=== PATIENT | female | born 1970 | race Two or more races ===

== ENCOUNTER 2017-12-21 16:38 | Emergency (ER) | payer OTHER ==
[2017-12-21 16:56] VITALS: BP 110/62; PULSE 64; TEMP 97.9; BMI 222.6
[2017-12-21] MEDS ORDERED: KETOROLAC TROMETHAMINE 60 MG/2 ML VIAL IM ONE (18:11)
[2017-12-21] MEDS ORDERED: KETOROLAC TROMETHAMINE 60 MG/2 ML VIAL ONE (18:13)
--- NOTE | 2017-12-21 18:18 | PDOC ---
History of Present Illness - General Chief Complaint: Back Pain Stated Complaint: BACK AND LEG PAIN Time Seen by Provider: 12/21/17 17:20 - History of Present Illness Initial Comments: 47-year-old female without comorbidities presents for evaluation of lower back pain with bilateral posterior lateral leg radiculopathy 2 weeks without any loss of bowel bladder function or saddle paresthesia no other associated symptoms 12/21/17 18:16 Past History - Past Medical History Allergies/Adverse Reactions: Allergies Allergy/AdvReac Type Severity Reaction Status Date / Time No Known Allergies Allergy Verified 12/21/17 16:54 Home Medications: Ambulatory Orders NK [No Known Home Medication] 12/21/17 COPD: No - Immunization History Immunization Up to Date: Yes - Suicide/Smoking/Psychosocial Hx Smoking Status: No Smoking History: Never smoked Number of Cigarettes Smoked Daily: 0 Hx Alcohol Use: No Drug/Substance Use Hx: No Substance Use Type: None Review of Systems - Review of Systems Musculoskeletal: Yes: Back Pain All Other Systems: Reviewed and Negative *Physical Exam - Vital Signs Last Vital Signs Temp Pulse Resp BP Pulse Ox 97.9 F 64 18 110/62 100 12/21/17 16:55 12/21/17 16:55 12/21/17 16:55 12/21/17 16:55 12/21/17 16:55 - Physical Exam Comments: 12/21/17 18:16 Lumbar spine skin color and temperature are normal range of motion is slightly decreased secondary to stiffness and pain. There is no paralumbar musculature spasm or tenderness. No midline tenderness. There is 5 out of 5 strength in bilateral lower extremities without gross sensorimotor deficits. She's neurovascular intact. ED Treatment Course - ADDITIONAL ORDERS Additional order review: Laboratory Results 12/21/17 17:30 Beta HCG, Quant < 1.0 - Medications Given in the ED: ED Medications Discontinued Medications Generic Name Dose Route Start Last Admin Trade Name Freq PRN Reason Stop Dose Admin Ketorolac Tromethamine 60 mg 12/21/17 18:11 12/21/17 18:15 Toradol Injection - IM 12/21/17 18:12 60 mg ONCE ONE Administration Medical Decision Making - Medical Decision Making 12/21/17 18:16 Lumbar radiculopathy with a benign lumbar spine exam. This may be. Forms syndrome I will prescribe her Motrin and Flexeril have her follow-up with spine surgery *DC/Admit/Observation/Transfer Diagnosis at time of Disposition: Lumbar radicular pain - Discharge Dispostion Disposition: HOME Condition at time of disposition: Stable Decision to Admit order: No - Referrals Referrals: David Mcclelland MD [Primary Care Provider] - Yuri Neri MD [Staff Physician] - - Patient Instructions Printed Discharge Instructions: Lumbar Radiculopathy, DI for Lumbar Radiculopathy Additional Instructions: Return to the emergency room should symptoms worsen or go unresolved. Please follow-up with spine surgery for further evaluation and treatment options. I prescribed few Motrin which is one tablet 3 times a day with food. Please discontinue the medication of bothers her stomach. I have prescribed few a muscle relaxer as well which is one tablet before bedtime I will make you sleepy. Follow up with spine surgery in 2-3 days for further evaluation and treatment options. - Post Discharge Activity
== END 2017-12-21 18:23 | disposition home or self-care (01) ==
LOC: JERFT 16:38
PROC: 3E0233Z Introduction of Anti-inflammatory into Muscle, Percutaneous Approach (ICD-10-PCS; principal; 2017-12-21)
DX: M54.16 Radiculopathy, lumbar region (principal)
CPT/HCPCS: 36415; 84702; 96372; 99281-25

== ENCOUNTER 2018-11-14 10:07 | Day surgery (SDC) | payer OTHER ==
[2018-11-13 14:15] VITALS: BMI 27.3
--- NOTE | 2018-11-14 09:11 | HP ---
History & Physical Update - History History: No Change - Physical Physical: No Change - Assessment Assessment: No Change - Plan Plan: No Change (Severe rectal pain, ? chronic anal fissure. Plan : examination under anesthesia, possible sphincterotomy, (lateral), anal fissurectomy, and otherrvrelated procedures, possible hemorrhoid ligation.)
[2018-11-14] MEDS ORDERED: SUCCINYLCHOLINE CHLORIDE 200 MG/10 ML SYRINGE ONE (12:20)
[2018-11-14] MEDS ORDERED: EPHEDRINE SULFATE/0.9% NACL/PF 50 MG/10 ML SYRINGE NR ONE (12:20)
[2018-11-14] MEDS ORDERED: PROPOFOL 20 ML ONE ×2 (12:20)
[2018-11-14] MEDS ORDERED: MIDAZOLAM HCL 2 MG/2 ML SINGLE DOSE VIAL ONE ×2 (12:50→13:08)
[2018-11-14] MEDS ORDERED: BUPIVACAINE HCL/PF 0.5% (5 MG/ML) 30 ML VIAL IJ ONE ×2 (12:51→14:37)
[2018-11-14] MEDS ORDERED: BACITRACIN 15 GM TUBE TOPICAL OINTMENT ONE (14:16)
[2018-11-14] MEDS ORDERED: BACITRACIN 15 GM TUBE TOPICAL OINTMENT TP ONE (14:17)
--- NOTE | 2018-11-14 14:54 | OP ---
Operative Note - Note: Operative Date: 11/14/18 Pre-Operative Diagnosis: Proctalgia, anal fissure with external hemorrhoid. Operation: Proctosigmoidoscopy with anal dilation,. Excision of anal fissure with anal poyp,. Lateral sphincterotomy,. Ultrasound guided ligation of hemorrhoidal artery and bundles, at 7, 9 and 11 O'clock position with hemorrhoidipexy. ( x 3), using THD instrument. Excision of anal polyp at 1 O; clock position Findings: Anal fissure at 6 o'clock position with sentinel pile, Stage 2 hemorrhoids at 7 . 9 and 11 O.clock position, Anal polyp at 1 o'clock position . Surgeon: Camacho Cifuentes Anesthesia: Spinal Specimens Removed: 1) Anal fissure with sentinel pile,. 2) Anal polyp at 1O' clock position. Estimated Blood Loss (mls): 5 Operative Report Dictated: Yes
[2018-11-14 16:40] VITALS: BP 105/62; PULSE 60; TEMP 97.7
--- NOTE | 2018-11-14 17:12 | OP ---
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 POSTOPERATIVE DIAGNOSIS: Chronic anal fissure with anal skin tag, anal polyp at 1 o'clock position, and 2nd-degree hemorrhoids. OPERATIVE PROCEDURES: 1. Proctosigmoidoscopy with anal dilatation. 2. Excision of anal fissure with lateral sphincterotomy with anal polyp. 3. Excision of anal polyp at 1 o'clock position. 4. Ultrasound-guided ligation of hemorrhoidal artery and bundles at 7, 9, and 11 o'clock position with hemorrhoidopexy x3 using the transanal hemorrhoidal dearterialization instrument. OPERATIVE DESCRIPTION: This 48-year-old woman complained of chronic rectal pain with anal fistula as well as anal bleeding and an anal polyp, external skin tag at 6 o'clock position. Pain was not relieved with conservative management with severe anal spasm. Patient is brought in for anal fissurectomy as well as ligation of hemorrhoids and removal of anal polyp. The patient was given spinal anesthesia and placed in lithotomy position. The perineum was painted and draped. A rigid total sigmoidoscopy was performed with anal dilation with 2 fingers on either side. Proctosigmoidoscopy revealed anal fissure at 6 o'clock position with a sentinel pile, an anal polyp at 1 o'clock position, and 2nd-degree hemorrhoids at 5, 7, 9, and 11 o'clock position. After proctosigmoidoscopy with anal dilation, the anal fissure was visualized using the anoscope. This was completely excised circumferentially with normal anal mucosa as well as removing the external pile and all scar tissue. This was sent to Pathology as a specimen. The mucosa was then placed to the left side, and the superficial fibers of the external sphincter were incised to perform a fissurectomy. Once this was done, the anal mucosa was carefully approximated with continuous 3-0 Vicryl sutures thus closing the defect. Once excision of anal fissure with sphincterotomy and repair was completed, the anal polyp at 1 o'clock position was also excised using electrocautery. This was also sent to Pathology. Next, using the THD instrument, the hemorrhoidal artery and bundles were ligated, and hemorrhoidopexy was also performed. This was done using the ultrasound guidance with maximal arterial signal of the hemorrhoidal artery in the submucosa was identified at 3, 7, and 9 o'clock position. This was done using 2-0 Vicryl ligating this hemorrhoidal artery using the THD instrument. After ligating, the sound was muffled. Once this was done, the hemorrhoidal bundle was also ligated using the suture in a continuous running fashion close to the skin and then pulling it back towards the 1st suture thus ligating the hemorrhoidal bundles and doing hemorrhoidopexy. This was done at 3 positions, 7, 9, and 11 o'clock position. At the completion of this, there was no bleeding. Marcaine 0.5% was injected circumferentially to the external sphincter and to the hemorrhoidal bundles and skin in the periphery. Estimated blood loss was 5-10 mL. Sponge count and instrument count was correct. Patient was sent to the recovery room in satisfactory and stable condition. Anjel [id number] cc: David Mcclelland MD
--- NOTE | 2018-11-19 17:18 | PATH ---
Surgical Pathology Report Patient Name: DEE PIÑA Med. Rec. #: [id number] /Age/Gender: 1970 (Age: 48) / F Account: [id number] Location: [facility] SURGICAL Taken: 11/14/2018 Received: 11/18/2018 Reported: 11/19/2018 Physicians: Shon Cifuentes M.D. Specimen(s) Received A: ANAL FISTULA B: ANAL POLYP 1:00 Clinical History Severe rectal pain, chronic anal fistula Final Diagnosis A. ANAL FISTULA, EXCISION: SQUAMOUS MUCOSA WITH MILD CHRONIC INFLAMMATION, MILD LAMINA PROPRIA FIBROSIS, AND REACTIVE CHANGES COMPATIBLE WITH ANAL FISTULA. B. ANAL POLYP, 1:00, BIOPSY: PAPILLARY SQUAMOUS MUCOSA WITH MILD ACANTHOSIS. Electronically Signed Esperanza Ponce M.D. Gross Description A. Received in formalin, labeled "anal fistula" is a 1.5 x 0.5 x 0.3 cm portion of gonzalez, polypoid tissue. Entirely submitted in one cassette. B. Received in, labeled "anal polyp at 1:00" is a 0.7 x 0.5 x 0.2 cm portion of brown-gonzalez, polypoid tissue. Entirely submitted in one cassette. AE/11/18/2018 ebram/11/18/2018
== END 2018-11-14 18:15 | disposition home or self-care (01) ==
LOC: JASU-SURG 10:07
PROVIDERS: ATTEND Specialist
PROC: 0D9Q8ZZ Drainage of Anus, Via Natural or Artificial Opening Endoscopic (ICD-10-PCS; 2018-11-14)
PROC: 065Y0ZC Destruction of Hemorrhoidal Plexus, Open Approach (ICD-10-PCS; 2018-11-14)
PROC: 0DBQ0ZZ Excision of Anus, Open Approach (ICD-10-PCS; principal; 2018-11-14 11:30)
DX: K60.1 Chronic anal fissure (principal); K64.4 Residual hemorrhoidal skin tags; K64.1 Second degree hemorrhoids; K62.0 Anal polyp
CPT/HCPCS: 84703; 88304-TC; 88305-TC; 94760

== ENCOUNTER 2020-10-20 04:43 | Day surgery (SDC) | payer OTHER ==
[2020-10-19 12:27] VITALS: BMI 26.7
[2020-10-20 10:47] VITALS: TEMP 96.9
[2020-10-20 12:55] VITALS: BP 114/71; PULSE 53
== END 2020-10-20 11:40 | disposition home or self-care (01) ==
LOC: JASU-ENDO 04:43
PROVIDERS: ATTEND Internal Medicine Gastroenterology
PROC: 0DBL8ZX Excision of Transverse Colon, Via Natural or Artificial Opening Endoscopic, Diagnostic (ICD-10-PCS; principal; 2020-10-20 10:30)
DX: R10.9 Unspecified abdominal pain (principal); D12.3 Benign neoplasm of transverse colon
CPT/HCPCS: 81025; 88305-TC; 88342-TC

== ENCOUNTER 2021-02-27 14:47 | Emergency (ER) | payer OTHER ==
[2021-02-27 15:01] VITALS: BP 110/73; PULSE 69; TEMP 97.8; BMI 30.2
[2021-02-27] MEDS ORDERED: IBUPROFEN 600 MG TABLET (FP) PO ONE ×2 (17:29→17:32)
== END 2021-02-27 17:42 | disposition home or self-care (01) ==
LOC: JERFT 14:47
DX: S93.402A Sprain of unspecified ligament of left ankle, initial encounter (principal); X50.9XXA Other and unspecified overexertion or strenuous movements or postures, initial encounter
CPT/HCPCS: 73610-TC-LT-FY; 73630-TC-LT; 99283-25

== ENCOUNTER 2022-08-02 16:13 | Emergency (ER) | payer OTHER ==
[2022-08-02 16:19] VITALS: BP 114/80; PULSE 84; RESP 18; TEMP 97.4; BMI 32.4
[2022-08-02] MEDS ORDERED: DEXAMETHASONE SOD PHOSPHATE 10 MG/1 ML VIAL IVPUSH ONE (16:56)
[2022-08-02] MEDS ORDERED: ALBUTEROL SO4 2.5/IPRATROPIUM 0.5 INH SOL 3 ML VIAL.NEB. NEB ONE ×2 (16:56→17:10)
[2022-08-02] MEDS ORDERED: DEXAMETHASONE SOD PHOSPHATE 10 MG/1 ML VIAL ONE (17:11)
[2022-08-02 17:30] LABS: BASO % 0.9 % (0-2.0); EOS % 11.3 % (0-4.5); HEMATOCRIT 36.4 % (32.4-45.2); HEMOGLOBIN 12.1 GM/dL (10.7-15.3); LYMPH % 46.7 % (8-40); MCH 29.3 pg (25.7-33.7); MCHC 33.3 g/dl (32.0-36.0); MEAN CELL VOLUME 87.9 fl (80-96); MEAN PLT VOLUME 7.5 fl (7.5-11.1); MONO % 12.5 % (3.8-10.2); NEUT % 28.6 % (42.8-82.8); PLATELET COUNT 253 10^3/uL (134-434); RBC 4.14 M/mm3 (3.60-5.2); WHITE BLOOD COUNT 5.5 K/mm3 (4.0-10.0)
[2022-08-02 17:37] LABS: INR 0.97 (0.83-1.09); PROTHROMBIN TIME (PATIENT) 11.3 SEC (9.7-13.0)
[2022-08-02 17:52] LABS: POTASSIUM 3.9 mmol/L (3.5-5.1)
[2022-08-02 17:54] LABS: BLOOD UREA NITROGEN 12.5 mg/dL (7-18); CALCIUM 9.4 mg/dL (8.5-10.1)
[2022-08-02 17:55] LABS: ALBUMIN 3.7 g/dl (3.4-5.0); MAGNESIUM 2.2 mg/dL (1.8-2.4)
[2022-08-02 17:57] LABS: CREATININE 0.7 mg/dL (0.55-1.3)
[2022-08-02 17:59] LABS: BILIRUBIN,TOTAL 0.2 mg/dL (0.2-1); TOT PROT 7.4 g/dl (6.4-8.2)
== END 2022-08-02 20:04 | disposition home or self-care (01) ==
LOC: JER 16:13
PROC: 3E0F7GC Introduction of Other Therapeutic Substance into Respiratory Tract, Via Natural or Artificial Opening (ICD-10-PCS; principal; 2022-08-02)
PROC: 3E033GC Introduction of Other Therapeutic Substance into Peripheral Vein, Percutaneous Approach (ICD-10-PCS; 2022-08-02)
DX: J18.9 Pneumonia, unspecified organism (principal); R09.3 Abnormal sputum
CPT/HCPCS: 36415; 71045-TC-FY; 80053; 83690; 83735; 84484; 85025; 85610; 85730; 93005; 93010; 99285-25; J1100